=== PATIENT | female | born 1960 | race Caucasian/White ===

== ENCOUNTER → 2021-02-22 | Day surgery (SDC) | payer OTHER ==
[~2021-02-22] MED LIST: CELEBREX100 MG PO; PREMARIN1.25 MG PO; PROPOFOL IV EMULSION 10 MG/ML 20 ML VIAL ONE; SYNTHROID125 MCG PO; WELLBUTRIN XL150 MG PO
[2021-02-22 12:54] VITALS: BP 145/84
== END | disposition home or self-care (01) ==
LOC: OR 10:08
PROVIDERS: ATTEND Internal Medicine Gastroenterology
DX: Z12.11 Encounter for screening for malignant neoplasm of colon (principal); D12.4 Benign neoplasm of descending colon; K62.1 Rectal polyp; K64.8 Other hemorrhoids; E03.9 Hypothyroidism, unspecified; F32.9 Major depressive disorder, single episode, unspecified; I10 Essential (primary) hypertension; Z01.810 Encounter for preprocedural cardiovascular examination; Z01.812 Encounter for preprocedural laboratory examination; Z20.822 Contact with and (suspected) exposure to COVID-19
CPT/HCPCS: 45385; 93005; J2704; U0002; 45378